=== PATIENT | male | born 1980 | race Caucasian/White ===

== ENCOUNTER 2017-04-01 08:46 | Emergency (ER) | payer SELFPAY ==
[~2017-04-01] VITALS: Ht 180.3 cm; Wt 95.0 kg
[~2017-04-01 08:46] MED LIST: LORTA5 PO; METO25 PO
[2017-04-01 08:48] VITALS: BP 146/79; PULSE 76; RESP 24; TEMP 98.9; O2SAT 98
[2017-04-01 09:02] VITALS: BP 134/85; PULSE 70; RESP 16; O2SAT 97
[2017-04-01] MEDS ORDERED: LEXA10TA PO (09:07)
[2017-04-01] MEDS ORDERED: TOPA25TA8 PO (09:07)
[2017-04-01] MEDS ORDERED: SERO50TA PO (09:07)
[2017-04-01] MEDS ORDERED: SERO100T PO (09:07)
[2017-04-01] MEDS ORDERED: PHENYLEPH/NS 1000 MCG/10 ML SYR IV ONE (09:15)
[2017-04-01] MEDS ORDERED: PHENYLEPHRINE HCL 10 MG/ML VIAL IV PUSH ONE (09:15)
[2017-04-01] MEDS ORDERED: HYDROmorphone HCL PF 1 MG/ML VIAL IV PUSH ONE (09:15)
[2017-04-01] MEDS ORDERED: ONDANSETRON HCL 4 MG/2 ML VIAL IV PUSH ONE (09:15)
[2017-04-01] MEDS ORDERED: SODIUM CHLOR 0.9% 1000 ML INJ 1,000 ML IV SCH (09:15)
[2017-04-01 09:19] LABS: AUTOMATED NEUTROPHIL # 5.5 TH/MM3 (1.8-7.7); BASOPHIL # 0.1 TH/MM3 (0-0.2); EOSINOPHIL # 0.3 TH/MM3 (0-0.4); EOSINOPHIL % 3.2 % (0.0-4.0); HEMO FLAGS DIFF FINAL; LYMPH % 28.2 % (9.0-44.0); LYMPHOCYTE # 2.6 TH/MM3 (1.0-4.8); MEAN CORPUSCULAR HEMOGLOBIN 29.3 PG (27.0-34.0); MEAN CORPUSCULAR HGB CONC 33.7 % (32.0-36.0); MONO % 7.7 % (0.0-8.0); NEUT % 59.9 % (16.0-70.0); PLATELET COUNT 263 TH/MM3 (150-450); RED BLOOD COUNT 5.06 MIL/MM3 (4.50-5.90); RED CELL DISTRIBUTION WIDTH 12.8 % (11.6-17.2); WHITE BLOOD COUNT 9.2 TH/MM3 (4.0-11.0)
--- NOTE | 2017-04-01 09:20 | PD ---
HPI Chief Complaint: Complaint Time Seen by Provider: 09:02 Travel History International Travel<30 days: No Contact w/Intl Traveler<30days: No Traveled to known affect area: No History of Present Illness HPI 37-year-old male complains of priapism. 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 Patient needed injection of phenylephrine in the past for the problem. Patient denies any illicit drug abuse. Patient states that priapism happened about 10 hours prior coming to the emergency room today. Patient states the pain is severe pain sharp pain localized to the penis. Patient denies any chest pain or shortness of breath. Patient denies abdominal pain. Patient states that he is not on Cialis or Viagra. 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) Musculoskeletal: Yes (chronic back pain) Influenza Vaccination: No Past Surgical History Oral Surgery: Yes Social History Alcohol Use: No Tobacco Use: Yes (1/2 PPD) Substance Use: Yes (MARIJUANA VIA PRESCRIPTION) Allergies-Medications (Allergen,Severity, Reaction): Coded Allergies: Morphine (Verified Allergy, Intermediate, NAUSEA/VOMITING, 04/01/17) Reported Meds & Prescriptions Reported Meds & Active Scripts Active Flexeril (Cyclobenzaprine HCl) 10 Mg Tab 10 Mg PO TID Ibuprofen 600 Mg Tab 600 Mg PO TID Reported Seroquel (Quetiapine Fumarate) 50 Mg Tab 50 Mg PO DAILY Seroquel (Quetiapine Fumarate) 100 Mg Tab 100 Mg PO HS Topamax (Topiramate) 25 Mg Tab Unknown Dose PO BID Lexapro (Escitalopram Oxalate) 10 Mg Tab 10 Mg PO DAILY Review of Systems General / Constitutional: No: Fever Eyes: No: Visual changes HENT: No: Headaches Cardiovascular: No: Chest Pain or Discomfort Respiratory: No: Shortness of Breath Gastrointestinal: No: Abdominal Pain Genitourinary: No: Dysuria Musculoskeletal: No: Pain Skin: No Rash Neurologic: No: Weakness Psychiatric: No: Depression Endocrine: No: Polydipsia Hematologic/Lymphatic: No: Easy Bruising Physical Exam Narrative GENERAL: Well-nourished, well-developed patient. SKIN: Focused skin assessment warm/dry. HEAD: Normocephalic. EYES: No scleral icterus. No injection or drainage. NECK: Supple, trachea midline. No JVD or lymphadenopathy. CARDIOVASCULAR: Regular rate and rhythm without murmurs, gallops, or rubs. RESPIRATORY: Breath sounds equal bilaterally. No accessory muscle use. GASTROINTESTINAL: Abdomen soft, non-tender, nondistended. MUSCULOSKELETAL: No cyanosis, or edema. BACK: Nontender without obvious deformity. No CVA tenderness. exam: Patient has priapism. Data Data Last Documented VS Vital Signs Date Time Temp Pulse Resp B/P Pulse Ox O2 Delivery O2 Flow Rate FiO2 04/01/17 09:02 70 16 134/85 97 Room Air 04/01/17 08:48 98.9 Orders Complete Blood Count With Diff (04/01/17 09:06) Basic Metabolic Panel (Bmp) (04/01/17 09:06) Iv Access Insert/Monitor (04/01/17 09:06) Ecg Monitoring (04/01/17 09:06) Oximetry (04/01/17 09:06) Sodium Chlor 0.9% 1000 Ml Inj (Ns 1000 M (04/01/17 09:15) Hydromorphone Pf Inj (Dilaudid Pf Inj) (04/01/17 09:15) Ondansetron Inj (Zofran Inj) (04/01/17 09:15) Phenylephrine Inj (Neosynephrine Inj) (04/01/17 09:15) Phenyleph/Ns 1000 Mcg/10ml Syr (Neosynep (04/01/17 09:15) Sodium Chlor 0.9% 1000 Ml Inj (Ns 1000 M (04/01/17 09:30) Phenylephrine Inj (Neosynephrine Inj)... (04/01/17 09:30) Phenyleph/Ns 1000 Mcg/10ml Syr (Neosynep (04/01/17 10:30) Ketorolac Inj (Toradol Inj) (04/01/17 11:45) Labs Laboratory Tests Test 04/01/17 09:10 White Blood Count 9.2 TH/MM3 Red Blood Count 5.06 MIL/MM3 Hemoglobin 14.9 GM/DL Hematocrit 44.0 % Mean Corpuscular Volume 87.0 FL Mean Corpuscular Hemoglobin 29.3 PG Mean Corpuscular Hemoglobin 33.7 % Concent Red Cell Distribution Width 12.8 % Platelet Count 263 TH/MM3 Mean Platelet Volume 8.2 FL Neutrophils (%) (Auto) 59.9 % Lymphocytes (%) (Auto) 28.2 % Monocytes (%) (Auto) 7.7 % Eosinophils (%) (Auto) 3.2 % Basophils (%) (Auto) 1.0 % Neutrophils # (Auto) 5.5 TH/MM3 Lymphocytes # (Auto) 2.6 TH/MM3 Monocytes # (Auto) 0.7 TH/MM3 Eosinophils # (Auto) 0.3 TH/MM3 Basophils # (Auto) 0.1 TH/MM3 CBC Comment DIFF FINAL Differential Comment Sodium Level 140 MEQ/L Potassium Level 4.5 MEQ/L Chloride Level 110 MEQ/L Carbon Dioxide Level 23.1 MEQ/L Anion Gap 7 MEQ/L Blood Urea Nitrogen 17 MG/DL Creatinine 1.03 MG/DL Estimat Glomerular Filtration 80 ML/MIN Rate Random Glucose 97 MG/DL Calcium Level 8.7 MG/DL [facility] Medical Decision Making Medical Screen Exam Complete: Yes Emergency Medical Condition: Yes Differential Diagnosis Differential diagnosis including priapism Narrative Course 37-year-old male recurrent priapism. Patient was given phenylephrine 250 g on each size of the penis at 3:00 and 9 o'clock position. Priapism is much improved subsequently. Normal saline solution 1 L IV bolus. Dilaudid 1 mg IV. Zofran 4 Magram IV. Patient will be discharged home. Diagnosis Primary Impression: Priapism Patient Instructions: General Instructions Additional Instructions: Take medications as needed for pain. Follow with urologist. [id number] Sudafed as directed. Med/Other Pt SpecificInfo: Prescription(s) given Scripts Cyclobenzaprine (Flexeril)10 Mg Tab10 Mg PO TID #30 TAB Ref 0 Prov:Bharath Justice MD 04/01/17 Ibuprofen 600 Mg [id number] Mg PO TID #60 TAB Ref 0 Prov:Bharath Justice MD 04/01/17 Disposition: 01 DISCHARGE HOME Condition: Stable Bharath Justice MD Apr 01, 2017 09:20
[2017-04-01] MEDS ORDERED: SODIUM CHLOR 0.9% 1000 ML INJ 1,000 ML IV ONE (09:30)
[2017-04-01] MEDS ORDERED: PHENYLEPHRINE 500 MCG/1 ML NS in SYRINGE I-CAVITARY ONE (09:30)
[2017-04-01 09:40] LABS: BICARBONATE 23.1 MEQ/L (21.0-32.0); POTASSIUM 4.5 MEQ/L (3.5-5.1)
[2017-04-01] MEDS ORDERED: PHENYLEPH/NS 1000 MCG/10 ML SYR OTHER ONE (10:30)
[2017-04-01] MEDS ORDERED: KETOROLAC TROMETHAMINE 30 MG/ML (IVP) VIAL IV PUSH ONE (11:45)
[2017-04-01] MEDS ORDERED: CYCL1TAB29 PO (11:51)
[2017-04-01] MEDS ORDERED: IBUP-232 PO (11:51)
[2017-04-01 12:57] VITALS: BP 145/78
== END 2017-04-01 12:57 | disposition home or self-care (01) ==
LOC: NEPC 08:46
DX: N48.30 Priapism, unspecified (principal); F43.10 Post-traumatic stress disorder, unspecified; F17.200 Nicotine dependence, unspecified, uncomplicated; Z79.899 Other long term (current) drug therapy
CPT/HCPCS: 80048; 85025; 96361; 96374; 96375; 99284; J1170; J1885; J2405; J7030

== ENCOUNTER 2017-04-24 15:04 | Emergency (ER) | payer SELFPAY ==
[~2017-04-24] VITALS: Ht 180.3 cm; Wt 96.0 kg
[~2017-04-24 15:04] MED LIST changes: +CYCL1TAB29 PO; +IBUP-232 PO; +LEXA10TA PO; -LORTA5 PO; -METO25 PO; +SERO100T PO; +SERO50TA PO; +TOPA25TA8 PO
[2017-04-24 15:06] VITALS: BP 130/74; PULSE 80; RESP 20; TEMP 97.7; O2SAT 99
[2017-04-24] MEDS ORDERED: LIDOCAINE 1%/EPINEPHrine 1:100,000 SOLN 30 ML VIAL ONE (15:18)
[2017-04-24] MEDS ORDERED: SODIUM CHLORIDE 0.9% I-CAVITARY ONE ×2 (15:30)
[2017-04-24] MEDS ORDERED: PHENYLEPHRINE I-CAVITARY ONE ×2 (15:30)
[2017-04-24] MEDS ORDERED: LIDOCAINE 1%/EPINEPHrine 1:100,000 SOLN 20 ML VIAL INFIL ONE (15:30)
[2017-04-24] MEDS ORDERED: HYDROmorphone HCL PF 1 MG/ML VIAL IM ONE (15:30)
--- NOTE | 2017-04-24 15:35 | PD ---
HPI Chief Complaint: Complaint Time Seen by Provider: 15:16 Travel History International Travel<30 days: No Contact w/Intl Traveler<30days: No Traveled to known affect area: No History of Present Illness HPI 37-year-old male with history of recurrent priapism, almost daily who presents the emergency department with complaint of same. Patient states that he woke up this morning with erection, has been present and painful 7 hours. He denies any history of Viagra/Cialis or other stimulant, cocaine use, trazodone, etc. Patient states that he wakes up almost every morning with an erection, but typically this will resolve and is less painful. Patient has been seen in our emergency department several times, including by myself requiring phenylephrine injection and aspiration. He's previously been offered a fistula with urology but declined. PFSH Past Medical History Hx Anticoagulant Therapy: Yes (possibly plavix) Anxiety: Yes (PTSD) Diminished Hearing: No Musculoskeletal: Yes (chronic back pain) Past Surgical History Oral Surgery: Yes Social History Alcohol Use: No Tobacco Use: Yes (/2 PPD) Substance Use: Yes (MARIJUANA VIA PRESCRIPTION) Allergies-Medications (Allergen,Severity, Reaction): Coded Allergies: Morphine (Verified Allergy, Intermediate, NAUSEA/VOMITING, 04/24/17) Reported Meds & Prescriptions Reported Meds & Active Scripts Active Flexeril (Cyclobenzaprine HCl) 10 Mg Tab 10 Mg PO TID Ibuprofen 600 Mg Tab 600 Mg PO TID Reported Seroquel (Quetiapine Fumarate) 50 Mg Tab 50 Mg PO DAILY Seroquel (Quetiapine Fumarate) 100 Mg Tab 100 Mg PO HS Topamax (Topiramate) 25 Mg Tab Unknown Dose PO BID Lexapro (Escitalopram Oxalate) 10 Mg Tab 10 Mg PO DAILY Review of Systems Except as stated in HPI: all other systems reviewed are Neg Physical Exam Narrative GENERAL: Well-appearing male in moderate distress SKIN: Focused skin assessment warm/dry. HEAD: Normocephalic. EYES: No scleral icterus. No injection or drainage. ENT: Mucous membranes pink and moist. NECK: Supple CARDIOVASCULAR: Regular rate and rhythm. RESPIRATORY: No accessory muscle use. GASTROINTESTINAL: Abdomen soft, non-tender, nondistended. GENITOURINARY: External male genitalia circumcised. No rashes, lesions, erythema. Correct penis on the abdomen, pain with any movement. No discharge. Scrotum unremarkable without erythema or tenderness to palpation of the testicle/epididymis. MUSCULOSKELETAL: No obvious deformities. No edema. NEUROLOGICAL: Awake and alert. Normal speech. PSYCHIATRIC: Appropriate mood and affect; insight and judgment normal. Data Data Last Documented VS Vital Signs Date Time Temp Pulse Resp B/P Pulse Ox O2 Delivery O2 Flow Rate FiO2 04/24/17 15:06 97.7 80 20 130/74 99 Room Air Orders Phenylephrine Inj (Neosynephrine Inj)... (04/24/17 15:30) Lidocai-Epi 1%-1:100,000 Inj (Xylocaine- (04/24/17 15:18) Lidocai-Epi 1%-1:100,000 Inj (Xylocaine- (04/24/17 15:30) Hydromorphone Pf Inj (Dilaudid Pf Inj) (04/24/17 15:30) [facility] Medical Decision Making Medical Screen Exam Complete: Yes Emergency Medical Condition: Yes Medical Record Reviewed: Yes Differential Diagnosis 37-year-old male with history of recurrent priapism here with complaint of same. Differential includes priapism, cocaine abuse. Narrative Course I called and spoke with pharmacy to mix phenylephrine for injection. Historically patient has required several injections. Dorsal penile block performed, please see procedure note. Aspiration injection performed, please see procedure note. Patient was monitored after injection with no recurrent erection and discharged home with outpatient urology referral. Procedures Procedure Narrative 1% lidocaine with epinephrine was used to perform dorsal penile block on the dorsal aspect of the base of the penis. A total of 8 mL was used. Patient tolerated procedure well. The bilateral calf or nose were aspirated with 18-gauge needle. Approximately 1 -2 mL of dark clotted blood was removed. 500 g of phenylephrine was injected bilaterally. Patient had detumescence thereafter. He did have a small hematoma on the right side of the penile shaft at the site of aspiration. Patient tolerated procedure well. Diagnosis Primary Impression: Priapism Referrals: Dayday Valerio MD call for appointment Urologist call for appointment Additional Instructions: Call urology for outpatient follow-up. Med/Other Pt SpecificInfo: No Change to Meds Disposition: 01 DISCHARGE HOME Condition: Stable Ashwini Rhodes MD Apr 24, 2017 15:34
[2017-04-24] MEDS ORDERED: oxyCODONE/ACETAMINOPHEN 10 MG/325 MG TAB PO ONE (16:45)
[2017-04-24 16:56] VITALS: RESP 18
[2017-04-25] MEDS ORDERED: HYDR-3533 PO (17:58)
== END 2017-04-24 17:01 | disposition home or self-care (01) ==
LOC: NEPD 15:04
DX: N48.30 Priapism, unspecified (principal)
CPT/HCPCS: 54220; 96372; 99284; J1170; J2370

== ENCOUNTER 2017-04-25 16:58 | Emergency (ER) | payer SELFPAY ==
[~2017-04-25] VITALS: Ht 180.3 cm; Wt 95.0 kg
[2017-04-25 17:00] VITALS: BP 169/82; PULSE 104; RESP 15; TEMP 98.2; O2SAT 99
[2017-04-25 17:16] VITALS: BP 138/79; PULSE 96; RESP 16; O2SAT 97
[2017-04-25] MEDS ORDERED: LIDOCAINE HCL 1% 50 ML VIAL INFIL ONE (17:30)
[2017-04-25] MEDS ORDERED: PHENYLEPHRINE INJ 0.5 MG, SODIUM CHLORIDE 0.9% INJ 0.95 ML in SYRINGE/BAG 1 EA I-CAVITARY ONE ×2 (17:30)
[2017-04-25] MEDS ORDERED: HYDR-3533 PO (17:58)
--- NOTE | 2017-04-25 17:58 | PD ---
HPI Chief Complaint: Pain: Acute or Chronic Time Seen by Provider: 17:19 Travel History International Travel<30 days: No Contact w/Intl Traveler<30days: No Traveled to known affect area: No History of Present Illness HPI Is a 37-year-old man who presents to the emergency department complaining of pain tenderness and swelling on his penis. He has a history of priapism intermittently attributed both to the trazodone use in the past and cocaine use in the past. He was seen yesterday for priapism. He still gets symptoms almost daily but they usually resolve on their own. He had a drainage procedure done as well as a penile block. He has small hematoma according to the note yesterday. He states today his worsening pain and tenderness and swelling in his penis with some bruising as well as some more pain radiating into his bilateral inner thighs that he gets when he has priapism. He does not have priapism now. History Past Medical History Narrative Medical Intermittent priapism Influenza Vaccination: No Social History Alcohol Use: Yes (RARELY) Tobacco Use: Yes (1/2 PPD) Allergies-Medications (Allergen,Severity, Reaction): Coded Allergies: Morphine (Verified Allergy, Intermediate, NAUSEA/VOMITING, 04/25/17) Reported Meds & Prescriptions Reported Meds & Active Scripts Active Reported Seroquel (Quetiapine Fumarate) 100 Mg Tab 100 Mg PO HS Topamax (Topiramate) 25 Mg Tab Unknown Dose PO BID Lexapro (Escitalopram Oxalate) 10 Mg Tab 10 Mg PO DAILY Review of Systems Except as stated in HPI: all other systems reviewed are Neg Physical Exam Narrative GENERAL: Generally well-appearing 37-year-old man, uncomfortable, nontoxic. SKIN: Focused skin assessment warm/dry. CARDIOVASCULAR: Regular rate and rhythm. No murmur appreciated. RESPIRATORY: No accessory muscle use. Clear to auscultation. Breath sounds equal bilaterally. GASTROINTESTINAL: Abdomen soft, non-tender, nondistended. Hepatic and splenic margins not palpable. MUSCULOSKELETAL: No obvious deformities. : Normal external male genitalia. He has some swelling of the glans penis especially distally with some ecchymosis. Is also some ecchymosis at the base. Shaft is flaccid but with some swelling. Scrotum is unremarkable. He has moderate diffuse tenderness. Data Data Last Documented VS Vital Signs Date Time Temp Pulse Resp B/P Pulse Ox O2 Delivery O2 Flow Rate FiO2 04/25/17 17:16 96 16 138/79 97 Room Air 04/25/17 17:00 98.2 Orders Phenylephrine Inj (Neosynephrine Inj)... (04/25/17 17:30) Lidocaine 1% Inj (50 Ml) (Xylocaine 1% I (04/25/17 17:30) MDM Medical Decision Making Medical Screen Exam Complete: Yes Emergency Medical Condition: Yes Differential Diagnosis Hematoma, infection, priapism, fistula, other Narrative Course Medical decision making This 37-year-old male presents emergent from a painful hematoma from drainage procedure for priapism yesterday. Still has intermittent priapism. He is not having priapism now. Recommend he wear compressive undergarments, rest and elevation, ice as needed, pain medicine. Diagnosis Primary Impression: Penile pain Additional Instructions: Take pain medications as prescribed. Wear compressive undergarments as discussed. Follow-up with urology as discussed. Return to the emergency department for any new or worsening symptoms. Med/Other Pt SpecificInfo: Prescription(s) given Scripts Hydrocodone-Acetaminophen (Lortab)5-325 Mg Tab1-2 Tab PO Q6H PRN (PAIN) #12 TAB Prov:James Dunbar MD 04/25/17 Disposition: 01 DISCHARGE HOME Condition: Stable James Dunbar MD Apr 25, 2017 17:58
[2017-04-25] MEDS ORDERED: HYDROmorphone HCL PF 1 MG/ML VIAL IM ONE (18:15)
== END 2017-04-25 19:03 | disposition home or self-care (01) ==
LOC: NEPC 16:58
DX: N48.89 Other specified disorders of penis (principal); N48.30 Priapism, unspecified; F17.210 Nicotine dependence, cigarettes, uncomplicated
CPT/HCPCS: 96372; 99284; J1170

== ENCOUNTER 2017-05-18 16:41 | Emergency (ER) | payer SELFPAY ==
[~2017-05-18] VITALS: Ht 180.3 cm; Wt 98.0 kg
[~2017-05-18 16:41] MED LIST changes: -CYCL1TAB29 PO; +HYDR-3533 PO; -IBUP-232 PO; -SERO50TA PO
--- NOTE | 2017-05-18 16:47 | PD ---
Physical Exam Date Seen by Provider: May 18, 2017 Time Seen by Provider: 16:46 Narrative 37 yo male here for priapism. Has had them x 9 times. 6 hours. 10/10 pain. Started before he woke up. Previous drainages before. Vitals are stable in triage. Awaiting bed placement. [facility] Medical Record Reviewed: Yes Supervised Visit with JENNIFER: No Bashir Dailey May 18, 2017 16:47
[2017-05-18] MEDS ORDERED: LIDOCAINE 1%/EPINEPHrine 1:100,000 SOLN 30 ML VIAL ONE (17:12)
[2017-05-18] MEDS ORDERED: LIDOCAINE 1%/EPINEPHrine 1:100,000 SOLN 20 ML VIAL INFIL ONE (17:15)
[2017-05-18] MEDS ORDERED: PHENYLEPH/NS 1000 MCG/10 ML SYR IV ONE (17:15)
--- NOTE | 2017-05-18 17:29 | PD ---
HPI Chief Complaint: Complaint Time Seen by Provider: 17:04 Travel History International Travel<30 days: No Contact w/Intl Traveler<30days: No Traveled to known affect area: No History of Present Illness HPI 37yo M with recurrent priaprism here with c/o penile erection since 10am this morning when he woke up. Pt states he has no insurance and cannot see the urologist. He has been here multiple times for this before. Denies any fever, chest pain, sob, n/v, abdominal pain, focal weakness or numbness. States he has not been taking his lexapro or seroquel. PFSH Past Medical History Hx Anticoagulant Therapy: Yes (possibly plavix) Bipolar Disorder: Yes Anxiety: Yes (PTSD) Diminished Hearing: No Genitourinary: Yes (PRIAPISM) Musculoskeletal: Yes (chronic back pain) Past Surgical History Oral Surgery: Yes Social History Alcohol Use: Yes (RARELY) Tobacco Use: Yes (1/2 PPD) Substance Use: Yes (MARIJUANA VIA PRESCRIPTION) Allergies-Medications (Allergen,Severity, Reaction): Coded Allergies: morphine (Unverified Allergy, Intermediate, NAUSEA/VOMITING, 05/10/17) Reported Meds & Prescriptions Reported Meds & Active Scripts Active Pseudoephedrine (Pseudoephedrine HCl) 60 Mg Tab 60 Mg PO Q12HR PRN Lortab (Hydrocodone-Acetaminophen) 5-325 Mg Tab 1-2 Tab PO Q6H PRN Reported Seroquel (Quetiapine Fumarate) 100 Mg Tab 100 Mg PO HS Lexapro (Escitalopram Oxalate) 10 Mg Tab 10 Mg PO DAILY Review of Systems Except as stated in HPI: all other systems reviewed are Neg Physical Exam Narrative GENERAL: 37yo M in moderate distress. SKIN: Focused skin assessment warm/dry. HEAD: Atraumatic. Normocephalic. CARDIOVASCULAR: Regular rate and rhythm. No murmur appreciated. RESPIRATORY: No accessory muscle use. Clear to auscultation. Breath sounds equal bilaterally. GASTROINTESTINAL: Abdomen soft, non-tender, nondistended. : +Penile erection. No testicular ttp. MUSCULOSKELETAL: No obvious deformities. No clubbing. No cyanosis. No edema. NEUROLOGICAL: Awake and alert. No obvious cranial nerve deficits. Motor grossly within normal limits. Normal speech. PSYCHIATRIC: Appropriate mood and affect; insight and judgment normal. Data Data Last Documented VS Vital Signs Date Time Temp Pulse Resp B/P (MAP) Pulse Ox O2 Delivery O2 Flow Rate FiO2 05/18/17 18:54 05/18/17 18:43 17 05/18/17 17:34 89 97 Room Air Orders Orders Lidocai-Epi 1%-1:100,000 Inj (Xylocaine- (05/18/17 17:15) Phenyleph/Ns 1000 Mcg/10ml Syr (Neosynep (05/18/17 17:15) Lidocai-Epi 1%-1:100,000 Inj (Xylocaine- (05/18/17 17:12) Hydromorphone Pf Inj (Dilaudid Pf Inj) (05/18/17 17:30) Mandatory Outpatient Referral (05/18/17 18:26) [facility] Medical Decision Making Medical Screen Exam Complete: Yes Emergency Medical Condition: Yes Differential Diagnosis Recurrent priaprism likely secondary to medication use Narrative Course 37yo M with recurrent priaprism here with another episode of priaprism since waking up at 10am today. Pt given IV dialudid, and had penile block. Then 500mcg of phenylephrine was injected into the corpus cavernosum and priaprism had resolved. Pt has been observed in the ED without recurrent priaprism. I discussed with urologist Dr. Haywood and he recommends prescribing a few days of sudafed. Will do mandatory referral for urology. Return precautions given. Pt is demanding that I prescribe him narcotics and wants to speak with a supervisor powdered sugar. Nurse occupational health nurse manager was notified. Procedures Procedure Narrative Dorsal penile block performed using 8cc of lidocaine with epinephrine. 4cc on each side. 250mcg of phenylephrine was injected on each side of the corpus cavernosum at 3 o'clock and 9 o'clock with resolution of priaprism. Diagnosis Primary Impression: Priapism Referrals: Peter Haywood DO as needed Patient Instructions: General Instructions Departure Forms: Tests/Procedures Additional Instructions: Please follow up with urologist when the upper caser calls you for appointment. Please drink plenty of water to hydrate yourself. Return to the ED if symptoms reoccur. Med/Other Pt SpecificInfo: Prescription(s) given Scripts Pseudoephedrine (Pseudoephedrine) 60 Mg Tab 60 MG PO Q12HR Y for NASAL CONGESTION, #6 TAB 0 Refills Prov: Singer,Ailyn DO 05/18/17 Disposition: 01 DISCHARGE HOME Condition: Stable Ailyn Singer DO May 18, 2017 17:29
[2017-05-18] MEDS ORDERED: HYDROmorphone HCL PF 1 MG/ML VIAL IV PUSH ONE (17:30)
[2017-05-18 17:34] VITALS: BP 135/76; PULSE 89; RESP 18; O2SAT 97
[2017-05-18] MEDS ORDERED: SUDO60TA2 PO (18:23)
[2017-05-18 18:43] VITALS: RESP 17
== END 2017-05-18 19:05 | disposition home or self-care (01) ==
LOC: NEPD 16:41
DX: N48.30 Priapism, unspecified (principal); F17.200 Nicotine dependence, unspecified, uncomplicated; Z79.01 Long term (current) use of anticoagulants; Z86.59 Personal history of other mental and behavioral disorders; Z87.448 Personal history of other diseases of urinary system; Z87.39 Personal history of other diseases of the musculoskeletal system and connective tissue
CPT/HCPCS: 96374; 96375; 99284; J1170; J2370

== ENCOUNTER 2017-05-21 08:47 | Emergency (ER) | payer SELFPAY ==
[~2017-05-21] VITALS: Ht 180.3 cm; Wt 90.5 kg
[~2017-05-21 08:47] MED LIST changes: +SUDO60TA2 PO; -TOPA25TA8 PO
[2017-05-21 08:49] VITALS: BP 135/86; PULSE 122; RESP 20; TEMP 98.6; O2SAT 95
[2017-05-21 10:01] LABS: AUTOMATED NEUTROPHIL # 10.9 TH/MM3 (1.8-7.7); BASOPHIL # 0.1 TH/MM3 (0-0.2); BASOPHIL % 0.5 % (0.0-2.0); EOSINOPHIL % 0.2 % (0.0-4.0); HEMATOCRIT 48.4 % (39.0-51.0); HEMO FLAGS DIFF FINAL; LYMPH % 15.2 % (9.0-44.0); LYMPHOCYTE # 2.1 TH/MM3 (1.0-4.8); MEAN CELL VOLUME 88.2 FL (80.0-100.0); MEAN CORPUSCULAR HEMOGLOBIN 29.5 PG (27.0-34.0); MEAN CORPUSCULAR HGB CONC 33.5 % (32.0-36.0); MONO % 5.5 % (0.0-8.0); NEUT % 78.6 % (16.0-70.0); PLATELET COUNT 327 TH/MM3 (150-450); RED BLOOD COUNT 5.49 MIL/MM3 (4.50-5.90); RED CELL DISTRIBUTION WIDTH 13.7 % (11.6-17.2); WHITE BLOOD COUNT 13.8 TH/MM3 (4.0-11.0)
[2017-05-21 10:10] LABS: ANION GAP 7 MEQ/L (5-15); AST (GOT) 178 U/L (15-37); BICARBONATE 23.9 MEQ/L (21.0-32.0); BLOOD UREA NITROGEN 9 MG/DL (7-18); CHLORIDE 107 MEQ/L (98-107); GLOMERULAR FILTRATION RATE 79 ML/MIN (>89); POTASSIUM 4.2 MEQ/L (3.5-5.1); SODIUM (NA) 138 MEQ/L (136-145)
[2017-05-21 10:14] LABS: ALKALINE PHOSPHATASE 117 U/L (45-117); ALT (GPT) 377 U/L (12-78); TOTAL BILIRUBIN ADULT 0.4 MG/DL (0.2-1.0)
--- NOTE | 2017-05-21 10:20 | PD ---
HPI Chief Complaint: Psychiatric Symptoms Time Seen by Provider: 09:55 Travel History International Travel<30 days: No Contact w/Intl Traveler<30days: No Traveled to known affect area: No History of Present Illness HPI This is a 37-year-old male who has a history of mental illness, cocaine abuse and alcohol abuse who presents to the emergency department saying he's been off of his psychiatric medications and he wants to kill himself. All night he says he's been binging on cocaine and alcohol trying to . He has a friend with him who says she's known him for a year and she's never seen him like this. She says that he's been hallucinating and talking about voices that he hears in his head. She says she has never seen him this depressed. PFSH Past Medical History Hx Anticoagulant Therapy: No Bipolar Disorder: Yes Anxiety: Yes (PTSD) Depression: Yes Cardiovascular Problems: No Chemotherapy: No Cerebrovascular Accident: No Diabetes: No Diminished Hearing: No Genitourinary: Yes (PRIAPISM) Musculoskeletal: Yes (chronic back pain) Respiratory: No Past Surgical History Oral Surgery: Yes Social History Alcohol Use: Yes (RARELY) Tobacco Use: Yes (1/2 PPD) Substance Use: Yes (MARIJUANA, cocaine) Allergies-Medications (Allergen,Severity, Reaction): Coded Allergies: morphine (Unverified Allergy, Intermediate, NAUSEA/VOMITING, 05/21/17) Reported Meds & Prescriptions Reported Meds & Active Scripts Active Abilify (Aripiprazole) 2 Mg Tab 2 Mg PO DAILY Topamax (Topiramate) 50 Mg Tab 50 Mg PO BID Lexapro (Escitalopram Oxalate) 10 Mg Tab 10 Mg PO DAILY Review of Systems ROS Limitations: Intoxication Physical Exam Narrative GENERAL:Well appearing, no acute distress SKIN: Focused skin assessment warm and dry. HEAD: Atraumatic. Normocephalic. EYES: Pupils equal and round. No injection or drainage. ENT: Moist mucous membranes NECK: Trachea midline. CARDIOVASCULAR: Regular rate and rhythm. No murmur appreciated. RESPIRATORY: Clear to auscultation. Breath sounds equal bilaterally. GASTROINTESTINAL: Abdomen soft and tender to palpation in the left upper quadrant with no rebound or guarding. MUSCULOSKELETAL: No obvious deformities. NEUROLOGICAL: Awake and alert. No obvious cranial nerve deficits. Moving all extremities. PSYCHIATRIC: Tearful, agitated, expresses suicidal ideation and auditory hallucinations. Data Data Last Documented VS Vital Signs Date Time Temp Pulse Resp B/P (MAP) Pulse Ox O2 Delivery O2 Flow Rate FiO2 05/21/17 08:49 98.6 122 20 135/86 (102) 95 Room Air Orders Orders Complete Blood Count With Diff (05/21/17 09:38) Comprehensive Metabolic Panel (05/21/17 09:38) Psych Screen (05/21/17 09:38) Drug Screen, Random Urine (05/21/17 09:38) Lipase (05/21/17 10:18) Lorazepam (Ativan) (05/21/17 11:00) Ibuprofen (Motrin) (05/21/17 12:15) Diet Regular Basic (05/21/17 Lunch) Alcohol (Ethanol) (05/21/17 09:41) Labs Laboratory Tests Test 05/21/17 09:41 White Blood Count 13.8 TH/MM3 Red Blood Count 5.49 MIL/MM3 Hemoglobin 16.2 GM/DL Hematocrit 48.4 % Mean Corpuscular Volume 88.2 FL Mean Corpuscular Hemoglobin 29.5 PG Mean Corpuscular Hemoglobin Concent 33.5 % Red Cell Distribution Width 13.7 % Platelet Count 327 TH/MM3 Mean Platelet Volume 8.0 FL Neutrophils (%) (Auto) 78.6 % Lymphocytes (%) (Auto) 15.2 % Monocytes (%) (Auto) 5.5 % Eosinophils (%) (Auto) 0.2 % Basophils (%) (Auto) 0.5 % Neutrophils # (Auto) 10.9 TH/MM3 Lymphocytes # (Auto) 2.1 TH/MM3 Monocytes # (Auto) 0.8 TH/MM3 Eosinophils # (Auto) 0.0 TH/MM3 Basophils # (Auto) 0.1 TH/MM3 CBC Comment DIFF FINAL Differential Comment Blood Urea Nitrogen 9 MG/DL Creatinine 1.05 MG/DL Random Glucose 102 MG/DL Total Protein 7.9 GM/DL Albumin 4.1 GM/DL Calcium Level 8.6 MG/DL Alkaline Phosphatase 117 U/L Aspartate Amino Transf (AST/SGOT) 178 U/L Alanine Aminotransferase (ALT/SGPT) 377 U/L Total Bilirubin 0.4 MG/DL Sodium Level 138 MEQ/L Potassium Level 4.2 MEQ/L Chloride Level 107 MEQ/L Carbon Dioxide Level 23.9 MEQ/L Anion Gap 7 MEQ/L Estimat Glomerular Filtration Rate 79 ML/MIN Lipase 90 U/L Urine Opiates Screen NEG Urine Barbiturates Screen NEG Urine Amphetamines Screen NEG Urine Benzodiazepines Screen NEG Urine Cocaine Screen POS Urine Cannabinoids Screen POS Ethyl Alcohol Level 5 MG/DL MDM Medical Decision Making Medical Screen Exam Complete: Yes Emergency Medical Condition: Yes Interpretation(s) Afebrile, tachycardic, normotensive Leukocytosis 78% neutrophils Transaminitis Lipase is 90 Urine drug screen is positive for cocaine and cannabinoid Alcohols 5 Differential Diagnosis Substance-induced mood disorder, depression, bipolar disorder, psychosis, schizophrenia Narrative Course This is a 37-year-old male who presents to the emergency department very depressed reporting auditory hallucinations wanting to kill himself. He says he was abusing cocaine and alcohol all night. He says he has been off of his psychiatric medications. I initially placed him under a Ruano act because of his suicidal statements. I gave him some Ativan. He felt much better upon discussion with the psychiatrist. Patient really says he just wants to be back on his medications. Patient's presentation seems to be more substance related. Dr. Crowder evaluated him and lifted the Ruano act and felt the patient could reasonably follow-up with outpatient psychiatry and would be stable as long as he was reinitiated on his medications. Patient will be discharged home. Diagnosis Primary Impression: Adjustment disorder with mixed disturbance of emotions and conduct Additional Impression: Cocaine abuse Patient Instructions: General Instructions Additional Instructions: If you have thoughts of hurting yourself or others return to the emergency department. Follow up with Eb[facility] Peacock in regards to psychiatric or substance related issues at: [address] [place] [id number] Med/Other Pt SpecificInfo: Prescription(s) given Scripts Aripiprazole (Abilify) 2 Mg Tab 2 MG PO DAILY, #30 TAB 0 Refills Prov: Jeramie Crowder MD 05/21/17 Topiramate (Topamax) 50 Mg Tab 50 MG PO BID for Control Seizures, #60 TAB 0 Refills Prov: Jeramie Crowder MD 05/21/17 Escitalopram (Lexapro) 10 Mg Tab 10 MG PO DAILY, #30 TAB 0 Refills Prov: Jeramie Crowder MD 05/21/17 Disposition: 01 DISCHARGE HOME Condition: Stable Tanika Yañez MD May 21, 2017 10:20
[2017-05-21] MEDS ORDERED: LORazepam 1 MG TAB PO ONE (11:00)
[2017-05-21] MEDS ORDERED: IBUPROFEN 600 MG TAB PO ONE (12:15)
[2017-05-21 13:18] LABS: ALCOHOL 5 MG/DL (0-5)
--- NOTE | 2017-05-21 13:59 | PD ---
History of Present Illness Chief Complaint: Psychiatric Symptoms Time Seen by Provider: 13:30 Travel History International Travel<30 Days: No Contact w/Intl Traveler<30days: No Known affected area: No Legal Status Legal Status: Alden Act History of Present Illness: 37-year-old male Alden acted by our emergency department physician for complaints of auditory hallucinations and suicidal ideation. Patient admits to significant recent history of alcohol abuse and cocaine abuse. He is however stating that he wants to go back on his medicines which include Topamax, Lexapro but not Seroquel. He feels the Seroquel has caused him to have priapism , even though he is aware this is not part of the side effect profile of that drug. Patient is willing to accept other medication and low dose Abilify was discussed. Patient is wanting detox and rehabilitation for his drug and alcohol problem and is willing to return to narcotics anonymous, which he has attended for years prior to this relapse. This physician feels the patient's problems are due to his drug abuse but is willing to place him back on his medications. He is being referred to [facility]ac[facility] for further evaluation and treatment. PFSH Past Medical History Hx Anticoagulant Therapy: No Bipolar Disorder: Yes Anxiety: Yes (PTSD) Depression: Yes Cardiovascular Problems: No Chemotherapy: No Cerebrovascular Accident: No Diabetes: No Diminished Hearing: No Genitourinary: Yes (PRIAPISM) Musculoskeletal: Yes (chronic back pain) Respiratory: No Past Surgical History Oral Surgery: Yes Psychiatric History Psychiatric History Hx Psychiatric Treatment: This physician sees no significant objective clinical evidence of bipolar disorder or hallucinations. Although the patient makes subjective representations of both, neither is apparent during this examination and his presentation is inconsistent with these complaints. History of Inpatient Treatment: No Guns or firearms in home: No Social History Hx Alcohol Use: Yes (RARELY) Hx Tobacco Use: Yes (1/2 PPD) Hx Substance Use: Yes (MARIJUANA, cocaine) Hx of Substance Use Treatment: Yes Allergies-Medications (Allergen,Severity, Reaction): Coded Allergies: morphine (Unverified Allergy, Intermediate, NAUSEA/VOMITING, 05/21/17) Reported Meds & Prescriptions Reported Meds & Active Scripts Active No Active Prescriptions or Reported Medications Review of Systems Except as stated in HPI: all other systems reviewed are Neg Exam Alert: Yes [place]: Person, Place, Date, Situation Mood: Calm Affect: Appropriate Speech: Clear, Logical Eye Contact: Normal Memory Intact: Immediate, Recent, Remote Suicidal: Ideation Insight/Judgement Adequate MDM Medical Decision Making Medical Record Reviewed: Yes Assessment/Plan Patient interviewed, electronic medical record reviewed, and this physician spoke with the patient's nurse, Cari. Patient is felt to be abusing drugs and malingering his complaints of auditory hallucinations. Patient appears to be manipulative with regard to his suicidal threats as he wants medications and detox/rehabilitation rather than killing himself. This physician is prescribing medications per the patient's request but also is lifting his Ruano act as he does not qualify due to his predominantly drug problems with other issues resulting from his drug problem. Patient may act out in a dangerous fashion but this is not predictable or avoidable and patient would be deemed responsible for any such behavior. Patient is found to be competent and not truly suffering from psychosis or major mental illness at this time. Orders Orders Complete Blood Count With Diff (05/21/17 09:38) Comprehensive Metabolic Panel (05/21/17 09:38) Psych Screen (05/21/17 09:38) Drug Screen, Random Urine (05/21/17 09:38) Lipase (05/21/17 10:18) Lorazepam (Ativan) (05/21/17 11:00) Ibuprofen (Motrin) (05/21/17 12:15) Diet Regular Basic (05/21/17 Lunch) Alcohol (Ethanol) (05/21/17 09:41) Results Vital Signs Date Time Temp Pulse Resp B/P (MAP) Pulse Ox O2 Delivery O2 Flow Rate FiO2 05/21/17 08:49 98.6 122 20 135/86 (102) 95 Room Air Laboratory Tests Test 05/21/17 09:41 White Blood Count 13.8 Red Blood Count 5.49 Hemoglobin 16.2 Hematocrit 48.4 Mean Corpuscular Volume 88.2 Mean Corpuscular Hemoglobin 29.5 Mean Corpuscular Hemoglobin Concent 33.5 Red Cell Distribution Width 13.7 Platelet Count 327 Mean Platelet Volume 8.0 Neutrophils (%) (Auto) 78.6 Lymphocytes (%) (Auto) 15.2 Monocytes (%) (Auto) 5.5 Eosinophils (%) (Auto) 0.2 Basophils (%) (Auto) 0.5 Neutrophils # (Auto) 10.9 Lymphocytes # (Auto) 2.1 Monocytes # (Auto) 0.8 Eosinophils # (Auto) 0.0 Basophils # (Auto) 0.1 CBC Comment DIFF FINAL Differential Comment Blood Urea Nitrogen 9 Creatinine 1.05 Random Glucose 102 Total Protein 7.9 Albumin 4.1 Calcium Level 8.6 Alkaline Phosphatase 117 Aspartate Amino Transf (AST/SGOT) 178 Alanine Aminotransferase (ALT/SGPT) 377 Total Bilirubin 0.4 Sodium Level 138 Potassium Level 4.2 Chloride Level 107 Carbon Dioxide Level 23.9 Anion Gap 7 Estimat Glomerular Filtration Rate 79 Lipase 90 Urine Opiates Screen NEG Urine Barbiturates Screen NEG Urine Amphetamines Screen NEG Urine Benzodiazepines Screen NEG Urine Cocaine Screen POS Urine Cannabinoids Screen POS Ethyl Alcohol Level 5 Diagnosis Primary Impression: Adjustment disorder with mixed disturbance of emotions and conduct Additional Impression: Cocaine abuse Prescriptions No Active Prescriptions or Reported Meds Problem Qualifiers Jeramie Crowder MD May 21, 2017 13:59
[2017-05-21] MEDS ORDERED: LEXA10TA PO (14:02)
[2017-05-21] MEDS ORDERED: ABIL2TAB2 PO (14:02)
[2017-05-21] MEDS ORDERED: TOPA50TA7 PO (14:02)
== END 2017-05-21 17:41 | disposition home or self-care (01) ==
LOC: NEPD 08:47
DX: F43.25 Adjustment disorder with mixed disturbance of emotions and conduct (principal); F14.10 Cocaine abuse, uncomplicated; R44.0 Auditory hallucinations; D72.829 Elevated white blood cell count, unspecified; R74.0 Nonspecific elevation of levels of transaminase and lactic acid dehydrogenase [LDH]; F17.200 Nicotine dependence, unspecified, uncomplicated; Z86.59 Personal history of other mental and behavioral disorders; Z87.448 Personal history of other diseases of urinary system
CPT/HCPCS: 80053; 80307; 83690; 85025; 99284